=== PATIENT | female | born 1980 | race Caucasian/White ===

== ENCOUNTER → 2016-10-01 | Outpatient (CLI) | payer OTHER | LOC: LAB 15:26 | DX: J00 Acute nasopharyngitis [common cold] (principal); R05 Cough; M60.9 Myositis, unspecified ==

== ENCOUNTER → 2017-05-26 | Outpatient (CLI) | payer OTHER | LOC: LAB 08:23 | DX: Z00.00 Encounter for general adult medical examination without abnormal findings (principal); F41.1 Generalized anxiety disorder ==

== ENCOUNTER → 2019-10-04 | Outpatient (CLI) | payer BC ==
[2019-10-04 08:52] LABS: BASO # 0.1 (0.02-0.10); EOS # 0.1 (0.04-0.40); EOS % 0.8 % (1.0-5.0); HEMATOCRIT 40.7 % (37.0-47.0); HEMOGLOBIN 13.4 g/dL (12.5-16.0); LYMPH# 2.2 (1.50-4.00); MEAN CELL VOLUME 85 fl (78-100); MEAN CORPUSCULAR HEMOGLOBIN 28 pg (27-31); MEAN CORPUSCULAR HGB CONC 33 g/dL (33-37); MEAN PLATELET VOLUME 10.8 fl (7.4-10.4); MONO # 0.8 (0.20-0.80); NEU # 5.2 (1.40-6.50); PLATELET COUNT 244 K/mm3 (130-400); RED BLOOD COUNT 4.77 M/mm3 (4.10-5.30); RED CELL DISTRIBUTION WIDTH 14.7 % (11.5-14.5); WHITE BLOOD COUNT 8.3 K/mm3 (4.8-10.8)
[2019-10-04 09:01] LABS: ALBUMIN 4.3 g/dL (3.5-5.0); POTASSIUM 4.2 mmol/L (3.5-5.1)
[2019-10-04 09:02] LABS: CALCIUM 9.6 mg/dL (8.3-10.5)
[2019-10-04 09:03] LABS: TOTAL PROTEIN 7.9 g/dL (6.4-8.3)
[2019-10-04 09:05] LABS: TOTAL BILIRUBIN 0.4 mg/dL (0.2-1.2)
== END ==
LOC: LAB 08:37
PROVIDERS: Physician Assistant
DX: Z00.00 Encounter for general adult medical examination without abnormal findings (principal); Z12.39 Encounter for other screening for malignant neoplasm of breast; Z13.220 Encounter for screening for lipoid disorders; Z13.29 Encounter for screening for other suspected endocrine disorder; M25.539 Pain in unspecified wrist; R53.83 Other fatigue; R63.5 Abnormal weight gain; Z83.49 Family history of other endocrine, nutritional and metabolic diseases

== ENCOUNTER → 2019-10-11 | Outpatient (CLI) | payer BC | LOC: LAB 14:28 | DX: J02.0 Streptococcal pharyngitis (principal); R59.0 Localized enlarged lymph nodes ==

== ENCOUNTER → 2019-11-14 | Outpatient (CLI) | payer BC | LOC: MAMMO 10-17 08:30 | DX: Z12.31 Encounter for screening mammogram for malignant neoplasm of breast (principal); N60.02 Solitary cyst of left breast; N60.01 Solitary cyst of right breast ==

== ENCOUNTER → 2019-11-20 | Outpatient (CLI) | payer BC | LOC: RAD 07:31 | DX: Z12.31 Encounter for screening mammogram for malignant neoplasm of breast (principal); N60.02 Solitary cyst of left breast; N60.01 Solitary cyst of right breast ==